=== PATIENT | female | born 1975 | race Caucasian/White ===

== ENCOUNTER 2025-04-16 07:36 | Emergency (ER) | payer OTHER, SELFPAY ==
[2025-04-16 07:38] VITALS: BP 158/100
--- NOTE | 2025-04-16 08:17 | ED.GENMED ---
History of Present Illness
General
Chief Complaint: Chest Pain
Source: patient and family
Exam Limitations: none
Time Seen by Provider: 04/16/25 08:09
Nursing documentation reviewed up to this point in time: agreed with
History of Present Illness
History of Present Illness:
Note:
CHIEF COMPLAINT(S)
Left-sided chest pain and headache.
HISTORY OF PRESENT ILLNESS
The patient is a 49-year-old female who presents with left-sided chest pain that exacerbates with deep breathing. The onset of the pain was yesterday. The patient described an incident where sneezing this morning significantly worsened the pain. She
reports that, historically, similar pains would resolve after a deep breath that resulted in a pop, but this time, the issue has persisted for 24 hours, causing shallow breathing. The patient has a history of asthma, gastroesophageal reflux,
anxiety, polysestectomy, and two sections. She reports the sensation of pain as a rib being 'stuck in the wrong spot' and spatially localized it to the area over the fourth and fifth ribs on the left side. Despite the discomfort, she
mentions continuing her activities, noting that, typically, the discomfort resolves independently.
PAST MEDICAL AND SURGICAL HISTORY
Asthma, gastroesophageal reflux, anxiety. Surgical history includes polysestectomy and two sections.
ALLERGIES
The patient reports no drug allergies
SOCIAL HISTORY
The patient does not consume alcohol or use tobacco products.
PHYSICAL EXAM
General: Alert, no acute distress.
Skin: Warm, dry.
Head: Normocephalic, atraumatic.
Neck: Supple, trachea midline.
Eyes, Ears, Nose, Mouth, and Throat: Oral mucosa moist.
Cardiovascular: Normal peripheral perfusion, No edema.
Respiratory: Respirations are non-labored. Left-sided chest pain with palpation over the fourth and fifth ribs. Lung sounds clear.
Gastrointestinal: Abdomen nondistended.
Back: Normal range of motion, Normal alignment.
Musculoskeletal: Normal range of motion, normal strength.
Neurological: Alert and oriented to person, place, time, and situation, No focal neurological deficit observed.
Psychiatric: Cooperative, appropriate mood & affect.
PROBLEM LIST
Acute:
- Left-sided chest pain
- Headache
Chronic:
- Asthma
- Gastroesophageal reflux
- Anxiety
PLAN
1. Administer an intramuscular injection of Toradol for pain management, as the patient has no contraindications including driving considerations.
2. Obtain a chest X-ray to evaluate for potential rib injury or other pathological changes in the thoracic cavity.
3. Review results of EKG, which has been noted as completely normal.
DIFFERENTIAL DIAGNOSIS
The Differential Diagnosis includes, in no particular order and is not limited to:
- Costochondritis
- Rib fracture or contusion
- Pleuritis or pleurisy
- Pulmonary embolism
- Pneumothorax
- Myocardial infarction
- Asthmatic flare
- Gastroesophageal reflux disease-related pain
- Anxiety-induced chest pain
Note:
CARE-UPDATE
04/16/25 - 15:38
The patients chest pain is suspected to be musculoskeletal in nature. Diagnostic tests, including a normal troponin and d-dimer, were reviewed, indicating no evidence of pulmonary embolism (PE), pneumonia, or acute coronary syndrome (ACS). A chest
X-ray showed mild atelectasis but no signs suggestive of pneumothorax. The patients condition is stable, and she is deemed appropriate for discharge. Follow-up care will focus on managing musculoskeletal symptoms.
Disposition:
SUMMARY OF ENCOUNTER
The patient is a 49-year-old female who presented with left-sided chest pain. On examination and initial evaluation, chest wall pain was suspected. Diagnostic tests included negative troponin and D-dimer, ruling out concerns such as acute coronary
syndrome (ACS), pulmonary embolism (PE), or pneumothorax. The patients condition was stable throughout the evaluation, and management focused on addressing suspected musculoskeletal pain.
DISPOSITION
Discharge.
ASSESSMENT
The patient is likely experiencing musculoskeletal chest wall pain.
PLAN
The patient will follow up with primary care for ongoing evaluation and management of musculoskeletal symptoms. Return precautions have been provided.
INDEPENDENT REVIEW OF LABS AND INTERPRETATION OF TESTS
My independent review of cardiac markers indicated a negative troponin, supporting the absence of acute coronary syndrome.
My independent review of coagulation markers also indicated a negative D-dimer, reducing suspicion for pulmonary embolism.
PATIENT EDUCATION AND COUNSELING
The patient was educated about the benign nature of musculoskeletal chest pain and instructed on return precautions, should any symptoms worsen or new symptoms develop.
FOLLOW-UP INSTRUCTIONS
The patient was advised to follow up with primary care for further evaluation and ongoing management.
MEDICAL DECISION MAKING
- Number and Complexity of Problems Addressed: Chronic conditions affecting care include asthma, gastroesophageal reflux, and anxiety. The differential diagnoses considered were costochondritis, rib fracture or contusion, pleuritis or pleurisy,
pulmonary embolism, pneumothorax, myocardial infarction, asthmatic flare, gastroesophageal reflux disease-related pain, and anxiety-induced chest pain.
- Data:
Category 1: My independent interpretation of labs included a negative troponin and negative D-dimer.
- Risk:
Consideration of Admission/Observation: Escalation of care including admission/observation was considered given the complexity and risk of the patients presenting complaint, exam findings, and their underlying comorbidities. However, ultimately the
patient is deemed safe for outpatient management with close follow-up. The reasoning is that the work-up was reassuring, not revealing any acute life/organ threatening processes, the patients symptoms were well controlled upon reevaluation,
reexamination was reassuring, vitals were stable, the patient was agreeable with discharge, and is reliable for follow-up.
DIAGNOSIS
- Chest wall pain (ICD-10: R07.82)
- Musculoskeletal chest pain (ICD-10: R07.89)
Past History
Past History
ED Past Medical History: None
ED Past Surgical History: Cholecystectomy and
Social History
Tobacco: Non-smoker
Alcohol: None
Drug: None
Personal:
Living: with family
Employment: Employed
Family History
Family History: Other (Noncontributory)
Phy Exam
Physical Exam
Physical Exam:
.
Scores
Heart Score for Chest Pain Patients
STEMI patient?: No
History: Slightly or Non-Suspicious
ECG: Normal
Age: >45 - <65 years
Risk Factors: No Risk Factors
Troponin: </= Normal Limit
Heart Score for Chest Pain Patients: 1
Heart Score Risk: 2.5% MACE over next 6 weeks
Course
Orders/Labs/Results
Orders:
Orders
04/16/25 07:42
ECG [Electrocardiogram (*1)] Urgent
Reason for Study: Chest Pain
EKG- Treatment ONCE
04/16/25 08:17
Ketorolac [Toradol] 15 mg IM NOW STA
CR Chest - 2 Views Urgent
Comment:
Reason For Exam: left side rib pain
04/16/25 09:47
IV Insert/Care/Rem.- Treatment PRN
04/16/25 10:04
Complete Blood Count/With Diff Urgent
Comprehensive Metabolic Panel Urgent
D-Dimer Urgent
Troponin I Urgent
Abnormal Lab Results
04/16/25
10:04
RBC 4.17 L 10^6/uL
(4.20-5.40)
Hct 36.3 L %
(37.0-47.0)
Chloride 108 H mmol/L
(98-107)
Glucose 107 H mg/dl
(70-99)
04/16/25 10:04
04/16/25 10:04
Vital Signs
Initial and Last Documented VS:
Initial Vital Signs
Temp Pulse Resp BP Pulse Ox
98.1 F 91 20 158/100 96
04/16/25 07:38 04/16/25 07:38 04/16/25 07:38 04/16/25 07:38 04/16/25 07:38
Last Documented Vital Signs
Temp Pulse Resp BP Pulse Ox
98.1 F 72 16 121/72 98
04/16/25 07:38 04/16/25 11:00 04/16/25 11:00 04/16/25 11:00 04/16/25 11:22
*Pulse Oximetry
SaO2: 96
Oxygen Mode of Delivery: Room air
Patient hypoxic: no
*Critical Care Note
Total Time (30-74mins, 75-104mins- exclusive of procedures): Not Applicable
ED Attending Note
-
Portions of this chart may have been created with voice recognition software.� Occasional wrong word or��sound alike� substitutions may have occurred due to the inherent limitations of voice recognition software.
Discharge Plan
Departure
Patient Disposition: Home (Routine Discharge)
Date of Disposition: 04/16/25
Time of Disposition: 11:33
Patient with high blood pressure during this ER visit?: Yes
Condition: Good
Discharge Problem:
Acute chest wall pain
Instructions: Chest Pain That Is Not Caused by the Heart (DC), Costochondritis (DC), BLOOD PRESSURE
Prescriptions:
No Action
ibuprofen 600 mg tablet
600 mg PO TID PRN (Reason: fever or pain) Qty: 20 0RF
hydrocodone-acetaminophen 5-300 mg tablet
1 tab PO Q8H PRN (Reason: pain) Qty: 14 0RF
Referrals:
Shellie Torres MD [Family Provider, Internal Medicine] - Call in 1-3 days for appt
Interventions
Interventions:
*Risk Screen - Suicide Last Done: 04/16/25 07:38
*General Assessment Last Done: 04/16/25 07:38
*ED COVID-19 Vaccine History Last Done: 04/16/25 10:03
*ED Influenza Vaccine History Last Done: 04/16/25 10:03
ED- Cardiac Assessment Last Done: 04/16/25 11:22
Discharge Date and Time
Print Language: YAKUT
[2025-04-16] MEDS: TORADOL 15 MG IM (08:32)
[2025-04-16 09:41] VITALS: BP 118/62
[2025-04-16 10:02] VITALS: BP 104/63
[2025-04-16 10:03] VITALS: BMI 50.5
[2025-04-16 10:16] LABS: Hematocrit 36.3 % (37.0-47.0); Hemoglobin 12.1 g/dL (12.0-16.0); Mean Corp Hgb Conc. 33.3 g/dL (33.0-37.0); Mean Corpuscular Volume 87.1 fL (81.0-99.0); Nucleated Red Blood Cells % 0 %; Platelet Count 247 10^3/uL (130-400); Red Cell Dist. Width 13.7 % (11.5-14.5)
[2025-04-16 10:33] LABS: D-Dimer < 0.27 ug/mlFEU (0.00-0.50)
[2025-04-16 10:43] LABS: Troponin I < 0.012 ng/ml
[2025-04-16 10:45] LABS: ALT (SGPT) 24 U/L (0-35); AST (SGOT) 22 U/L (14-36); Albumin 4.1 g/dl (3.5-5.0); Alkaline Phosphatase 105 U/L (38-126); Blood Urea Nitrogen 11 mg/dl (7-17); Calcium 9.0 mg/dl (8.4-10.2); Carbon Dioxide 26 mmol/L (22-30); Chloride 108 mmol/L (98-107); Estimated Creatinine Clearance 109 ml/min; Glucose 107 mg/dl (70-99); Potassium 3.9 mmol/L (3.5-5.1); Sodium 140 mmol/L (135-145); Total Protein 7.1 g/dl (6.3-8.2); eGFR > 60.00
[2025-04-16 11:00] VITALS: BP 121/72
== END 2025-04-16 11:40 | disposition home or self-care (01) ==
LOC: EMR 07:36
PROVIDERS: EMERGENCY PHYSICIAN Emergency Medicine; FAMILY PHYSICIAN Family Medicine
DX: R07.89 Other chest pain (principal); R51.9 Headache, unspecified; J45.909 Unspecified asthma, uncomplicated; Z90.49 Acquired absence of other specified parts of digestive tract
CPT/HCPCS: 99283; 71046; 80053; 84484; 85025; 85379; 93005